=== PATIENT | female | born 1950 | race Caucasian/White ===

== ENCOUNTER 2020-08-18 11:00 | Emergency (ER) | payer MEDICARE, OTHER ==
[~2020-08-18] VITALS: Ht 157.4 cm; Wt 50.0 kg
[2020-08-18] MEDS ORDERED: RT-ALBUINH IH (13:01)
[2020-08-18] MEDS ORDERED: D-ME118S33 PO (13:01)
[2020-08-18] MEDS ORDERED: CEPH500T PO (13:01)
--- NOTE | 2020-08-18 13:02 | ED Cough/URI ---
General Chief Complaint: Cough/Cold/Flu Symptoms Stated Complaint: COUGH,CONGESTION, Nursing Triage Note: Pt ambulatory into ER with complaint of cough and congestion x2 weeks. Pt states that she was given a prednisone pack a week and a half ago with some improvement. Pt states that she flew in yesterday from [place] with worsening since the flight. Pt states that there is no way she has covid. Source: patient Exam Limitations: no limitations History of Present Illness Date Seen by Provider: Aug 18, 2020 Time Seen by Provider: 12:58 Initial Comments 2 weeks ago she developed a cough, was seen in an emergency room and given prednisone. That temporarily improve her symptoms but now that she flew here from [place] she has nasal congestion and a productive cough. She has had both Covid vaccines. She is here for a wedding. Timing/Duration: just prior to arrival Severity/Quality: productive cough Associated Symptoms: cough Allergies and Home Medications Patient Home Medication List Home Medication List Reviewed: Yes Review of Systems Review of Systems Constitutional: see HPI EENTM: see HPI Respiratory: see HPI, cough Cardiovascular: no symptoms reported Genitourinary: no symptoms reported Musculoskeletal: no symptoms reported Skin: no symptoms reported Psychiatric/Neurological: No Symptoms Reported Hematologic/Lymphatic: No Symptoms Reported Immunological/Allergic: no symptoms reported Past Xidbxkl-Pylbwz-Gvwovi Hx Patient Social History Tobacco Use?: No Use of E-Cig and/or Vaping dev: No Substance use?: No Alcohol Use?: Yes Alcohol type: Wine Alcohol Frequency: Rarely Pt feels they are or have been: No Immunizations Up To Date Influenza Vaccine Up-to-Date: No; Not Current Second COVID19 Vaccination Rafael: May 02, 2020 COVID19 Vaccine Yarn Spooler: Aruna Physical Exam Vital Signs - First Documented Capillary Refill : Less Than 3 Seconds Height: '" Weight: lbs. oz. kg; 20.00 BMI Method: General Appearance: WD/WN, no apparent distress Eyes: Bilateral Eye Normal Inspection, Bilateral Eye PERRL, Bilateral Eye EOMI Respiratory: no respiratory distress, no accessory muscle use Cardiovascular: regular rate, rhythm, no murmur Gastrointestinal: normal bowel sounds, non tender, soft Neurologic/Psychiatric: alert, normal mood/affect, oriented x 3 Skin: normal color, warm/dry Progress/Results/Core Measures Suspected Sepsis SIRS Temperature: Pulse: 87 Respiratory Rate: 20 Blood Pressure 177 /74 Mean: 108 Results/Orders Lab Results Laboratory Tests Test 08/18/20 11:59 Range/Units Influenza Type A (RT-PCR) Not Detected Not Detecte Influenza Type B (RT-PCR) Not Detected Not Detecte SARS-CoV-2 RNA (RT-PCR) Not Detected Not Detecte My Orders Orders - HARMAN NIEVES APRN Chest 1 View, Ap/Pa Only (08/18/20 11:52) Covid 19 Inhouse Test (08/18/20 11:52) Influenza A And B By Pcr (08/18/20 11:52) Vital Signs/I&O 08/18/20 08/18/20 11:32 11:32 Temp 36.8 Pulse 87 Resp 20 B/P (MAP) 177/74 (108) Pulse Ox 98 O2 Delivery Room Air Room Air Capillary Refill : Less Than 3 Seconds Blood Pressure Mean: 108 Departure Impression Primary Impression: Bronchitis Disposition: 01 HOME, SELF-CARE Condition: Stable Departure-Patient Inst. Decision time for Depature: 12:59 Referrals: NO,LOCAL PHYSICIAN (PCP/Family) Primary Care Physician Patient Instructions: Acute Bronchitis, Adult (DC) Add. Discharge Instructions: 1. Use the inhaler 2 puffs every 4 hours as needed for wheezing or shortness of breath. Take the antibiotics as directed in addition to the cough medication. You are negative for Covid and influenza. All discharge instructions reviewed with patient and/or family. Voiced understanding. Scripts Albuterol Sulfate (PROAIR HFA) 1 Puff Puff 2 PUFF IH Q4H for 5 Days, PUFF 1 PUFF = 90 MCG Prov: HARMAN NIEVES APRN 08/18/20 Cephalexin (Cephalexin) 500 Mg Tablet 500 MG PO TID, #15 TAB Prov: HARMAN NIEVES APRN 08/18/20 D-Methorphan Hb/P-Epd HCl/Bpm (Bromfed Dm Cough Syrup) 118 Ml Syrup 5 ML PO Q6H PRN for COUGH for 7 Days, #120 ML Prov: HARMAN NIEVES APRN 08/18/20 HARMAN NIEVES APRN Aug 18, 2020 13:02
[2020-08-18 13:11] VITALS: BP 152/68
--- NOTE | 2020-08-18 13:21 | Diagnostic Imaging Report ---
Indication: Cough and congestion. Comparison: None Findings: A single view of the chest demonstrates clear lungs bilaterally. The heart is slightly enlarged. There is no pneumothorax. Osseous structures are stable. Impression: Negative chest Dictated by: Dictated on workstation # [id number]
== END 2020-08-18 13:11 | disposition home or self-care (01) ==
LOC: ER 11:05
DX: J40 Bronchitis, not specified as acute or chronic (principal); Z20.822 Contact with and (suspected) exposure to COVID-19
CPT/HCPCS: 71045; 87636